=== PATIENT | female | born 1960 | race African-American/Black ===

== ENCOUNTER 2021-04-23 17:06 | Emergency (ER) | payer MEDICARE, BC ==
[~2021-04-23] VITALS: Ht 167.6 cm; Wt 81.8 kg
[2021-04-23] MEDS ORDERED: DIAZEPAM 2 MG TABLET PO ONE (20:00)
[2021-04-23] MEDS ORDERED: KETOROLAC TROMETHAMINE 10 MG TABLET PO ONE (20:00)
[2021-04-23 21:22] VITALS: BP 160/90
== END 2021-04-23 22:35 | disposition home or self-care (01) ==
LOC: EMS 17:09
DX: S83.91XA Sprain of unspecified site of right knee, initial encounter (principal); S00.83XA Contusion of other part of head, initial encounter; S50.02XA Contusion of left elbow, initial encounter; F41.9 Anxiety disorder, unspecified; K21.9 Gastro-esophageal reflux disease without esophagitis; E78.00 Pure hypercholesterolemia, unspecified; I10 Essential (primary) hypertension; F12.90 Cannabis use, unspecified, uncomplicated; Z88.6 Allergy status to analgesic agent; W19.XXXA Unspecified fall, initial encounter; Y93.89 Activity, other specified; Y92.89 Other specified places as the place of occurrence of the external cause; Y99.8 Other external cause status
CPT/HCPCS: 70450; 70486; 72125; 99284